=== PATIENT | male | born 1970 | race Caucasian/White ===

== ENCOUNTER 2019-12-09 08:34 | Outpatient (CLI) | payer BC | END 2019-12-09 23:59 | disposition home or self-care (01) | LOC: CFH 08:34 | PROVIDERS: ATTEND Internal Medicine Cardiovascular Disease | DX: I08.2 Rheumatic disorders of both aortic and tricuspid valves (principal) | CPT/HCPCS: 93306 ==

== ENCOUNTER 2020-01-06 10:18 | Day surgery (SDC) | payer BC ==
[~2020-01-06] VITALS: Ht 185.4 cm; Wt 100.0 kg
[2020-01-06 10:41] VITALS: BP 161/80
[2020-01-06] MEDS ORDERED: SODIUM CHLORIDE 0.9% 1,000 ML IV ONE (11:00)
[2020-01-06] MEDS ORDERED: TAMS-11 PO (11:01)
[2020-01-06] MEDS ORDERED: PROPOFOL 10 MG/ML, 20ML ONE (13:08)
== END 2020-01-06 14:38 | disposition home or self-care (01) ==
LOC: CACL 10:18
PROVIDERS: ATTEND Internal Medicine Cardiovascular Disease
DX: I35.0 Nonrheumatic aortic (valve) stenosis (principal); I51.7 Cardiomegaly; I35.1 Nonrheumatic aortic (valve) insufficiency; Z79.899 Other long term (current) drug therapy
CPT/HCPCS: 93312; 93321; 93325; J2704

== ENCOUNTER 2020-01-25 10:33 | Day surgery (SDC) | payer BC, OTHER ==
[~2020-01-25] VITALS: Ht 185.4 cm; Wt 100.0 kg
[~2020-01-25 10:33] MED LIST: TAMS-11 PO
[2020-01-25 11:32] VITALS: BP 149/94
[2020-01-25 12:13] LABS: BASOPHILS # (AUTO) 0.03 x10^3/uL (0-0.1); BASOPHILS % (AUTO) 1 % (0-1); EOSINOPHILS # (AUTO) 0.09 x10^3/uL (0-0.4); EOSINOPHILS % (AUTO) 2 % (1-7); LYMPHOCYTES # (AUTO) 0.95 x10^3/uL (1-3.4); LYMPHOCYTES % (AUTO) 18 % (22-44); MD NO; MEAN CORPUSCULAR HGB CONC 34.1 g/dL (33.2-36.2); MEAN CORPUSCULAR VOLUME 90.9 fL (81-97); MEAN PLATELET VOLUME 7.9 fL (7.4-10.4); MONOCYTES # (AUTO) 0.36 x10^3/uL (0.2-0.8); MONOCYTES % (AUTO) 7 % (2-9); NEUTROPHILS # (AUTO) 3.94 x10^3/uL (1.8-6.8); NEUTROPHILS % (AUTO) 73 % (42-75); PLATELET COUNT 251 x10^3/uL (130-400); RED BLOOD COUNT 5.18 x10^6/uL (4.38-5.82); RED CELL DISTRIBUTION WIDTH 12.6 % (9.4-14.8)
[2020-01-25 12:19] LABS: ANION GAP 7 mmol/L (5-15); CALCIUM 8.9 mg/dL (8.5-10.1); CHLORIDE 109 mmol/L (98-107); CREATININE 1.11 mg/dL (0.7-1.3)
[2020-01-25] MEDS ORDERED: MIDAZOLAM 1 MG/ML, 5ML ONE (13:14)
[2020-01-25] MEDS ORDERED: FENTANYL PF 100 MCG/2ML ONE (13:14)
[2020-01-25] MEDS ORDERED: HEPARIN 1,000 UNITS/ML, 10ML ONE (13:15)
[2020-01-25] MEDS ORDERED: BIVALIRUDIN 250 MG ONE (13:15)
[2020-01-25] MEDS ORDERED: VERAPAMIL 2.5 MG/ML, 2ML ONE (13:15)
[2020-01-25] MEDS ORDERED: LIDOCAINE-MPF 1%, 5ML ONE (13:15)
[2020-04-03] MEDS ORDERED: ASPI81TA45 PO (16:58)
[2020-04-03] MEDS ORDERED: ACET325T26 PO (16:58)
[2020-04-03] MEDS ORDERED: POTA20TA91 PO (16:58)
[2020-04-03] MEDS ORDERED: METO25TA35 PO (16:58)
[2020-04-03] MEDS ORDERED: FURO40TA6 PO (16:58)
== END 2020-01-25 16:18 | disposition home or self-care (01) ==
LOC: CACL 10:33
PROVIDERS: ATTEND Internal Medicine Cardiovascular Disease
DX: I35.2 Nonrheumatic aortic (valve) stenosis with insufficiency (principal); I71.2 Thoracic aortic aneurysm, without rupture; Z79.899 Other long term (current) drug therapy
CPT/HCPCS: 36415; 80048; 85025; 93458; 93567; 99156; 99157; C1769; C1894; J1644; J2250; J3010; Q9967; J0583

== ENCOUNTER → 2020-01-27 | Outpatient (CLI) | payer BC ==
[~2020-01-27] MED LIST changes: +OMNIPAQUE 350 MG/ML, 100ML BOTTLE ONE
== END | disposition home or self-care (01) ==
LOC: CFH 10:26
PROVIDERS: ATTEND Internal Medicine Cardiovascular Disease
DX: I35.0 Nonrheumatic aortic (valve) stenosis (principal); I51.7 Cardiomegaly
CPT/HCPCS: 71275; Q9967

== ENCOUNTER → 2020-05-02 | Outpatient (CLI) | payer BC ==
[~2020-05-02] MED LIST changes: +ACET325T26 PO; +ASPI81TA45 PO; +FURO40TA6 PO; +METO25TA35 PO; -OMNIPAQUE 350 MG/ML, 100ML BOTTLE ONE; +POTA20TA91 PO
== END | disposition home or self-care (01) ==
LOC: CFH 14:55
PROVIDERS: ATTEND Internal Medicine Cardiovascular Disease
DX: I34.0 Nonrheumatic mitral (valve) insufficiency (principal)
CPT/HCPCS: 93306